=== PATIENT | male | born 1955 | race Caucasian/White ===

== ENCOUNTER 2020-01-19 09:49 | Inpatient (IN) ==
[2020-01-19] MEDS ORDERED: ADENOSINE IV SOLN 3 MG/ML 2 ML VIAL IV STA (10:07)
[2020-01-19] MEDS ORDERED: METOPROLOL TARTRATE 1 MG/ML VIAL IV ONE (10:12)
[2020-01-19] MEDS ORDERED: METOPROLOL TARTRATE 1 MG/ML VIAL IV PRN ×2 (10:13→15:46)
--- NOTE | 2020-01-19 10:28 | XRay Report ---
XR chest 1V portable CLINICAL HISTORY: sob, tachycardia COMPARISON STUDY: Chest radiograph January 08, 2011. FINDINGS: Lung volumes are normal. Lungs are clear. There is no pneumothorax or pleural effusion. The re is mild cardiomegaly. Mediastinal contours are normal. There is no evidence for pulmonary edema. IMPRESSION: No acute cardiopulmonary findings. Mild cardiomegaly. ACT 112: Negative or not required by law. Electronically signed by: Thom Stevens M.D. 01/19/2020 10:27 AM
[2020-01-19 10:38] LABS: Albumin Level 3.4 gm/dl (3.4-5.0); BUN Creatinine Ratio 14.9 (10-20); Calcium 9.2 mg/dl (8.5-10.1); Creatinine Clr Calc Pharmacy 70.6 ml/min; Est GFR (African American) 65.3; Est GFR (Non-African American) 56.3; Magnesium 2.3 mg/dl (1.8-2.4); Potassium 3.8 mmol/L (3.5-5.1)
[2020-01-19 10:40] LABS: ALC (manual) 2.35 K/uL (1.2-3.4); ANC (manual) 5.65 K/uL (1.4-6.5); Basophils # (manual) 0.08 K/uL (0-0.2); Basophils % (manual) 0.9 %; Hemoglobin 15.8 g/dL (14.0-18.0); Lymphocytes # (manual) 0.78 K/uL (1.2-3.4); Lymphocytes % (manual) 9.3 %; Mean Corpuscular Hemoglobin 30.6 pg (25-34); Mean Corpuscular Hgb Conc 34.3 g/dL (32-36); Mean Platelet Volume 12.2 fL (7.4-10.4); Monocytes # (manual) 0.37 K/uL (0.11-0.59); Monocytes % (manual) 4.4 %; Neutrophils # (manual) 5.65 K/uL (1.4-6.5); Neutrophils % (manual) 66.9 %; Platelet Count 121 K/uL (130-400); RDW Coefficient of Variation 13.5 % (11.5-14.5); RDW Standard Deviation 44.6 fL (36.4-46.3); Reactive Lymphocytes # (manual) 1.56 K/uL; Reactive Lymphocytes % (manual) 18.5 %; Red Blood Count 5.17 M/uL (4.7-6.1); White Blood Count 8.44 K/uL (4.8-10.8)
[2020-01-19] MEDS ORDERED: SODIUM CHLORIDE 0.9% 1000ML 500 ML IV ONE ×2 (10:41)
[2020-01-19 10:48] LABS: Albumin Globulin Ratio 0.7 (0.9-2); Bilirubin,Total 1.2 mg/dl (0.2-1); Globulin 4.7 gm/dl (2.5-4.0); Phosphorus 2.7 mg/dl (2.5-4.9); Thyroid Stimulating Hormone 1.47 uIu/ml (0.300-4.500); Total Protein 8.1 gm/dl (6.4-8.2)
[2020-01-19] MEDS ORDERED: dilTIAZem HCl 5 MG/ML 5 ML VIAL IV STA ×2 (10:50→19:39)
[2020-01-19 11:44] LABS: INR 1.1 (0.9-1.1); Partial Thromboplastin Ratio 1.2; Partial Thromboplastin Time 33.5 Seconds (21.0-31.0); Prothrombin Time 11.4 Seconds (9.0-12.0)
[2020-01-19] MEDS ORDERED: POLYETHYLENE (MIRALAX) 17 GM PACK PO PRN (12:10)
[2020-01-19] MEDS ORDERED: ACETAMINOPHEN 325 MG TAB PO PRN (12:10)
[2020-01-19] MEDS ORDERED: MAGNESIUM HYDROXIDE SUSP 30 ML UDC PO PRN (12:10)
--- NOTE | 2020-01-19 12:38 | History & Physical Report ---
Date of Service January 19, 2020 Assessment & Plan (1) Atrial flutter with rapid ventricular response: Patient is a 64 yo male with new onset Afib/Aflutter with RVR with rate up to 170s upon presentation. Admit to PCU Given Metoprolol x 2 and IV Cardizem in the ED. Rate improved. Continue IV Lopressor 12.5 MG QID & PRN IV Lopressor Start IV Heparin- uncertain duration of Aflutter Consult Cardiology Check Echocardiogram Continue to monitor on telemetry. Serial Troponin x 2 more. Initial trop negative. Repeat CBC & BMP in AM (2) Hypotension: (3) Fever: (4) D-dimer, elevated: (5) MCCOY (dyspnea on exertion): Hypotensive down to 75/62 upon presentation. Given 1 L fluid in the ED. Continue gentle hydration with hypotension. Feel that MCCOY is likely secondary to Aflutter/Afib, but with fever, question possible infectious etiology of symptoms as well Repeat COVID testing was negative Blood cultures, Lyme & Anaplasma ordered Hold abx at this time pending above testing DDimer elevated- CTA ordered and completed. Negative for PE (6) Nausea and vomiting: (7) DVT prophylaxis: IV Heparin as above History of Present Illness Primary Care Provider: Nagi Sanchez DO Patient is a 64 yo male with no personal cardiac history who presented to the ED with concern of 2-3 weeks of not feeling well. He has had fevers, sweats, fatigue, SOB, & N/V. He presented to outpatient weekend clinic at [facility] and was noted to be in Aflutter on EKG in the office. He was given ASA 325 mg in the office and referred to the ED for further evaluation and workup. The patient was COVID tested on 01/05/20 which was negative at that time. Since presentation to the ED, CXR was negative. WBC count within norm. Troponin undetectable. TSH & CMP unrevealing. Repeat COVID testing negative here. DDimer elevated. Procalcitonin slightly elevated. CTA Chest negative for PE. Allergies Allergy/AdvReac Type Severity Reaction Status Date / Time No Known Allergies Unverified 01/06/11 19:22 Home Medications Home Medications Medication Instructions Recorded Confirmed Type omeprazole 20 mg PO DAILY 01/19/20 01/19/20 History sildenafil 50 mg PO DIRECTED PRN 01/19/20 01/19/20 History Past Med/Surg History Medical History Anal fissure Noise-induced hearing loss Prediabetes Reflux esophagitis Surgical History H/O cervical spine surgery H/O esophagogastroduodenoscopy H/O right knee surgery History of ankle surgery History of tonsillectomy Hx of colonoscopy Family History Mother Colorectal cancer Breast cancer Father , @69yo Hypertension Diabetes Heart disease, Onset Age: 60 CABG Brother , @ 51yo Heart disease CHF, CAD Grandfather (Paternal) , @ 60 yo from [place] Myocardial infarction Social History Smoking Status: Never smoker Second Hand Exposure: No; Do You Dip or Chew Tobacco: No; Tobacco Cessation Education Requested by Patient: No Hx Alcohol Use: Yes Hx Substance Use: No Preferred Language: Citizen Of [place] Communication Ability: Effective Race Steward Required: No Beliefs That Will Affect Care: None Current Living Situation: Spouse Other Information That Helps Us Care for You: No Feels Safe at Home: Yes Safety Concerns: Feels Safe At This Time Review of Systems Review of Systems: All systems reviewed & are unremarkable except as noted in HPI & below See Dr. Rossi's addendum for complete ROS Constitutional: + body aches, + fatigue and + weakness; no fever and no chills Respiratory: + dyspnea; no cough Cardiovascular: + dyspnea on exertion, + palpitations and + lightheadedness Physical Exam Physical Exam: See Dr. Rossi's addendum for complete Physical Exam Constitutional: WD/WN, vitals as above no acute distress Eyes: PERRL, conjunctivae normal, anicteric sclerae ENMT: external ear and nose normal, oropharynx normal Neck: trachea midline, no thyromegaly Respiratory: normal respiratory effort, lungs clear to auscultation Cardiovascular: RRR, no murmur, no edema Gastrointestinal (Abdomen): normal bowel sounds, soft, nontender, no hepatos plenomegaly Skin: no rashes, warm and dry Neurologic: PERRL, EOMI, accommodation nl, no face palsy, no dysarthria Psychiatric: A+Ox3, euthymic affect Results & Data Results & Data ([facility]) Vital Signs (Past 12 Hours) Vital Signs Temp Pulse Resp BP Pulse Ox 01/19/20 12:00 85 12 95/61 L 96 01/19/20 11:50 85 14 112/79 96 01/19/20 11:40 87 18 100/73 96 01/19/20 11:30 86 13 99/68 L 96 01/19/20 11:27 15 96 01/19/20 11:20 87 17 109/74 01/19/20 11:10 109 H 21 92/74 L 01/19/20 11:00 82 20 106/80 01/19/20 10:53 103 H 18 93/77 L 01/19/20 10:51 135 H 15 75/62 L 01/19/20 10:50 152 H 23 90/74 L 01/19/20 10:32 147 H 15 93/62 L 97 01/19/20 10:30 149 H 13 80/51 L 98 01/19/20 10:22 37.0 C 174 H 22 91/73 L 96 01/19/20 10:17 169 H 15 104/59 L 98 01/19/20 10:15 173 H 91/73 L Laboratory Results Laboratory Results - last 24 hr 01/19/20 01/19/20 01/19/20 10:07 10:07 10:07 WBC 8.44 RBC 5.17 Hgb 15.8 Hct 46.0 MCV 89.0 MCH 30.6 MCHC 34.3 RDW Std Deviation 44.6 RDW Coeff of Lizbeth 13.5 Plt Count 121 L MPV 12.2 H Neutrophils % (Manual) 66.9 Lymphocytes % (Manual) 9.3 Reactive Lymphs % (Man) 18.5 Monocytes % (Manual) 4.4 Basophils % (Manual) 0.9 Neutrophils # (Manual) 5.65 Total Absolute Neuts 5.65 Lymphocytes # (Manual) 0.78 L Reactive Lymphs # 1.56 Total Abs Lymphocytes 2.35 Monocytes # (Manual) 0.37 Basophils # (Manual) 0.08 PT INR APTT PTT Ratio D-Dimer Sodium 138 Potassium 3.8 Chloride 107 Carbon Dioxide 21 Anion Gap 10.0 BUN 20 H Creatinine 1.31 Est Cr Clr Drug Dosing 70.6 Est GFR ( Amer) 65.3 Est GFR (Non-Af Amer) 56.3 BUN/Creatinine Ratio 14.9 Glucose 128 H Lactate Calcium 9.2 Phosphorus 2.7 Magnesium 2.3 Ferritin Total Bilirubin 1.2 H AST 28 ALT 52 Alkaline Phosphatase 89 Troponin I < 0.015 NT-Pro-B Natriuret Pep Total Protein 8.1 Albumin 3.4 Globulin 4.7 H Albumin/Globulin Ratio 0.7 L Procalcitonin TSH 1.470 Anaplasma Smear Pending 01/19/20 01/19/20 01/19/20 10:07 10:07 10:07 WBC RBC Hgb Hct MCV MCH MCHC RDW Std Deviation RDW Coeff of Lizbeth Plt Count MPV Neutrophils % (Manual) Lymphocytes % (Manual) Reactive Lymphs % (Man) Monocytes % (Manual) Basophils % (Manual) Neutrophils # (Manual) Total Absolute Neuts Lymphocytes # (Manual) Reactive Lymphs # Total Abs Lymphocytes Monocytes # (Manual) Basophils # (Manual) PT 11.4 INR 1.1 APTT 33.5 H PTT Ratio 1.2 D-Dimer Pending Sodium Potassium Chloride Carbon Dioxide Anion Gap BUN Creatinine Est Cr Clr Drug Dosing Est GFR ( Amer) Est GFR (Non-Af Amer) BUN/Creatinine Ratio Glucose Lactate Calcium Phosphorus Magnesium Ferritin Pending Total Bilirubin AST ALT Alkaline Phosphatase Troponin I NT-Pro-B Natriuret Pep Pending Total Protein Albumin Globulin Albumin/Globulin Ratio Procalcitonin TSH Pending Anaplasma Smear 01/19/20 01/19/20 10:07 10:15 WBC RBC Hgb Hct MCV MCH MCHC RDW Std Deviation RDW Coeff of Lizbeth Plt Count MPV Neutrophils % (Manual) Lymphocytes % (Manual) Reactive Lymphs % (Man) Monocytes % (Manual) Basophils % (Manual) Neutrophils # (Manual) Total Absolute Neuts Lymphocytes # (Manual) Reactive Lymphs # Total Abs Lymphocytes Monocytes # (Manual) Basophils # (Manual) PT INR APTT PTT Ratio D-Dimer Sodium Potassium Chloride Carbon Dioxide Anion Gap BUN Creatinine Est Cr Clr Drug Dosing Est GFR ( Amer) Est GFR (Non-Af Amer) BUN/Creatinine Ratio Glucose Lactate 1.7 Calcium Phosphorus Magnesium Ferritin Total Bilirubin AST ALT Alkaline Phosphatase Troponin I NT-Pro-B Natriuret Pep Total Protein Albumin Globulin Albumin/Globulin Ratio Procalcitonin Pending TSH Anaplasma Smear Diagnostic Findings CXR: XR chest 1V portable CLINICAL HISTORY: sob, tachycardia COMPARISON STUDY: Chest radiograph January 08, 2011. FINDINGS: Lung volumes are normal. Lungs are clear. There is no pneumothorax or pleural effusion. There is mild cardiomegaly. Mediastinal contours are normal. There is no evidence for pulmonary edema. IMPRESSION: No acute cardiopulmonary findings. Mild cardiomegaly. Code Status & VTE Plan VTE Prophylaxis Plan VTE Prophylaxis will be ordered: Yes Supervising Physician Co-Signing Physician Notes Attending addendum: Patient seen and examined at bedside in room CTAB 64-year-old male with past medical history of hypertension GERD admitted with shortness of breath palpitation, was found to be a flutter with heart rate of 170 in the ER No prior history of cardiac arrhythmia or coronary artery disease Patient reports of feeling weak fatigue generalized body ache weakness on and off for the past 3 weeks had low-grade fever headache Had a COVID-19 test done 2 weeks prior for the similar symptoms which was negative Patient reports his symptoms disappeared 3 days back and then started to have shortness of breath dyspnea on exertion again Patient lives in the [employer] works in the yard does not recall any tick bites no rash noted Does not have any fever or chills at this point no cough Labs and images reviewed: Vital signs as per [facility] Physical exam: General: a very pleasant male no sign of distress alert awake winded x3 conversing appropriately HEENT: Clear nonicteric pupils bilateral equal reactive to light, No carotid bruit Lungs: Clear to auscultate no wheeze or rales Cardio: Regular S1-S2 no lower extremity murmur, no carotid bruit Abdomen: Soft nontender Extremity: No rash or deformity noted no weakness or paresthesia Neuro: No focal neurological deficit A. fib/a flutter: New diagnosis, patient has been having shortness of breath or dyspnea on exertion, palpitation on and off for the past few weeks No prior history of coronary artery disease Has very strong family history of premature CAD: Dad had first [place] at age 40, Elder brother from acute [place] at age 50 pt started on PO Lopressor , HR rate controlled IV heparin wt based protocol cardiology consult resting ECHO Given strong family history of premature coronary artery disease patient will need ischemic work-up Fever body ache generalized weakness: Has been on and off for past several weeks COVID-19 negative For Lyme titer and anaplasmosis smear Patient still very symptomatic with body ache will start empirically with p.o. doxycycline Status: Full code DVT prophylaxis: IV heparin weight-based protocol Disposition: Expected to be discharged home when medically stable Patient will need to establish follow-ups cardiology on discharge Alisa Rossi MD
[2020-01-19 12:40] LABS: D Dimer 1300 ug/L FEU (0-500)
[2020-01-19 12:49] LABS: Ferritin 800.1 ng/ml (8-388); Thyroid Stimulating Hormone 1.4 uIu/ml (0.300-4.500)
[2020-01-19] MEDS ORDERED: OPTIRAY 320 125ml IV ONE (13:30)
--- NOTE | 2020-01-19 13:42 | CT Scan Report ---
CT ANGIOGRAPHY OF THE CHEST, PULMONARY EMBOLUS PROTOCOL CLINICAL HISTORY: PE, elevated DDimer, MCCOY COMPARISON STUDY: Chest radiograph January 08, 2011 and January 19, 2020. TECHNIQUE: Following IV administration of 120 mL of Optiray-320, helical axial images of the chest we re obtained utilizing the pulmonary embolus protocol. Maximal intensity projections and sagittal and coronal reformats were viewed on an independent 3D workstation. IV contrast was administered withou t complication. Automated exposure control was utilized for the study. A dose lowering technique wa s utilized adhering to the principles of ALARA. CT DOSE: 588.50 mGycm FINDINGS: No pulmonary emboli are identified. There is no thoracic aortic dissection. No enlarged ax illary, mediastinal or hilar lymph nodes are present. Mild cardiomegaly is noted. A small hiatal danna ia is present. Central airways are patent. There is no consolidation to suggest pneumonia. Linear and groundglass opacities represent atelectasis. No pneumothorax or pleural effusion is noted. There is no mediastinum. Visual portions of the upper abdomen partially visualize a water attenuation right re nal lesion which measures at least 4.6 cm. This probably reflects a cyst. IMPRESSION: 1. No pulmonary emboli identified. 2. No acute findings within the chest. 3. Mild cardiomegaly. 4. Small hiatal hernia. ACT 112: Negative or not required by law. Electronically signed by: Thom Stevens M.D. 01/19/2020 1:41 PM
[2020-01-19] MEDS ORDERED: Heparin BOLUS **ED Use Only IV STA (13:43)
[2020-01-19] MEDS: HEPARIN SODIUM/DEXTROSE 25,000 UNITS/500 ML BAG IV SCH (14:25)
--- NOTE | 2020-01-19 15:25 | Emergency Department Note ---
History of Present Illness General Chief complaint: Cardiac Assessment Stated complaint: SOB/Nausea/New Afib Time Seen by Provider: 01/19/20 09:51 Source: patient and family Mode of arrival: ambulatory Limitations: no limitations History of Present Illness Provider complaint: Shortness of breath, nausea, illness/low-grade fevers Maximum Pain Intensity: 3 This patient is a 64-year-old male who presents to the emergency department with complaints of shortness of breath, nausea, occasional vomiting and low-grade fevers. The patient states this has been ongoing for the last [address] ates during week 1 he felt that this was a "flu." Last week he was evaluated by his primary care physician and had a COVID swab done, which was negative. Patient states he has had some dyspnea with exertion but denies any shortness of breath at rest. He denies any palpitations or chest pain. Patient denies any blood in his stools. Home Medications Home Medications Medication Instructions Recorded Confirmed Type omeprazole 20 mg PO DAILY 01/19/20 01/19/20 History sildenafil 50 mg PO DIRECTED PRN 01/19/20 01/19/20 History Allergies Allergy/AdvReac Type Severity Reaction Status Date / Time No Known Allergies Unverified 01/06/11 19:22 Past Med/Surg History Medical History Anal fissure Noise-induced hearing loss Prediabetes Reflux esophagitis Surgical History H/O cervical spine surgery H/O esophagogastroduodenoscopy H/O right knee surgery History of ankle surgery History of tonsillectomy Hx of colonoscopy Family History Mother Colorectal cancer Breast cancer Father , @69yo Hypertension Diabetes Heart disease, Onset Age: 60 CABG Brother , @ 51yo Heart disease CHF, CAD Grandfather (Paternal) , @ 60 yo from [place] Myocardial infarction Social History Smoking Status: Never smoker Second Hand Exposure: No; Do You Dip or Chew Tobacco: No; Tobacco Cessation Education Requested by Patient: No Hx Alcohol Use: Yes Hx Substance Use: No Preferred Language: Bolivian Communication Ability: Effective Surgical Technologist Required: No Beliefs That Will Affect Care: None Current Living Situation: Spouse Other Information That Helps Us Care for You: No Feels Safe at Home: Yes Safety Concerns: Feels Safe At This Time Review of Systems See HPI for pertinent positives & negatives. and A total of 10 systems reviewed and were otherwise negative Physical Exam Vital Signs Vital Signs - 24 hr 01/19/20 10:15 01/19/20 10:17 01/19/20 10:22 Temperature 37.0 C Temperature Source Oral Pulse Rate 173 H 169 H 174 H Pulse Rate from SpO2 Sensor Pulse Rhythm Irregular Respiratory Rate 15 22 Respiratory Effort / Characteristics Spontaneous Respiratory Pattern Regular Blood Pressure 91/73 L 104/59 L 91/73 L Blood Pressure Mean 64 79 Pulse Oximetry 98 96 Oxygen Delivery Method Room Air Sepsis Recent Fever Within 48 Hours Yes Sepsis New/Unexplained Change in Mental Status No Sepsis Action Taken by Nursing Physician Notified 01/19/20 10:30 01/19/20 10:32 01/19/20 10:50 Temperature Temperature Source Pulse Rate 149 H 147 H 152 H Pulse Rate from SpO2 Sensor Pulse Rhythm Respiratory Rate 13 15 23 Respiratory Effort / Characteristics Respiratory Pattern Blood Pressure 80/51 L 93/62 L 90/74 L Blood Pressure Mean 54 66 76 Pulse Oximetry 98 97 Oxygen Delivery Method Sepsis Recent Fever Within 48 Hours Sepsis New/Unexplained Change in Mental Status Sepsis Action Taken by Nursing 01/19/20 10:51 01/19/20 10:53 01/19/20 11:00 Temperature Temperature Source Pulse Rate 135 H 103 H 82 Pulse Rate from SpO2 Sensor Pulse Rhythm Respiratory Rate 15 18 20 Respiratory Effort / Characteristics Respiratory Pattern Blood Pressure 75/62 L 93/77 L 106/80 Blood Pressure Mean 64 83 85 Pulse Oximetry Oxygen Delivery Method Sepsis Recent Fever Within 48 Hours Sepsis New/Unexplained Change in Mental Status Sepsis Action Taken by Nursing 01/19/20 11:10 01/19/20 11:20 01/19/20 11:27 Temperature Temperature Source Pulse Rate 109 H 87 Pulse Rate from SpO2 Sensor Pulse Rhythm Respiratory Rate 21 17 15 Respiratory Effort / Characteristics Respiratory Pattern Blood Pressure 92/74 L 109/74 Blood Pressure Mean 77 77 Pulse Oximetry 96 Oxygen Delivery Method Room Air Sepsis Recent Fever Within 48 Hours Sepsis New/Unexplained Change in Mental Status Sepsis Action Taken by Nursing 01/19/20 11:30 01/19/20 11:40 01/19/20 11:50 Temperature Temperature Source Pulse Rate 86 87 85 Pulse Rate from SpO2 Sensor 87 86 86 Pulse Rhythm Respiratory Rate 13 18 14 Respiratory Effort / Characteristics Respiratory Pattern Blood Pressure 99/68 L 100/73 112/79 Blood Pressure Mean 79 78 83 Pulse Oximetry 96 96 96 Oxygen Delivery Method Room Air Room Air Room Air Sepsis Recent Fever Within 48 Hours Sepsis New/Unexplained Change in Mental Status Sepsis Action Taken by Nursing 01/19/20 12:00 01/19/20 12:10 01/19/20 12:20 Temperature Temperature Source Pulse Rate 85 88 87 Pulse Rate from SpO2 Sensor 85 88 87 Pulse Rhythm Respiratory Rate 12 12 17 Respiratory Effort / Characteristics Respiratory Pattern Blood Pressure 95/61 L 92/66 L 108/66 Blood Pressure Mean 68 77 71 Pulse Oximetry 96 97 96 Oxygen Delivery Method Room Air Sepsis Recent Fever Within 48 Hours Sepsis New/Unexplained Change in Mental Status Sepsis Action Taken by Nursing 01/19/20 12:30 01/19/20 12:40 01/19/20 12:50 Temperature Temperature Source Pulse Rate 84 85 86 Pulse Rate from SpO2 Sensor 85 85 86 Pulse Rhythm Respiratory Rate 13 15 22 Respiratory Effort / Characteristics Respiratory Pattern Blood Pressure 106/85 109/80 116/79 Blood Pressure Mean 98 84 84 Pulse Oximetry 96 96 95 Oxygen Delivery Method Sepsis Recent Fever Within 48 Hours Sepsis New/Unexplained Change in Mental Status Sepsis Action Taken by Nursing 01/19/20 13:00 01/19/20 13:10 01/19/20 13:30 Temperature Temperature Source Pulse Rate 87 86 84 Pulse Rate from SpO2 Sensor 87 67 85 Pulse Rhythm Respiratory Rate 22 18 17 Respiratory Effort / Characteristics Respiratory Pattern Blood Pressure 122/89 Blood Pressure Mean 99 Pulse Oximetry 95 94 97 Oxygen Delivery Method Room Air Sepsis Recent Fever Within 48 Hours Sepsis New/Unexplained Change in Mental Status Sepsis Action Taken by Nursing 01/19/20 13:40 01/19/20 13:50 01/19/20 14:00 Temperature Temperature Source Pulse Rate 83 86 83 Pulse Rate from SpO2 Sensor 82 84 82 Pulse Rhythm Respiratory Rate 16 26 H 13 Respiratory Effort / Characteristics Respiratory Pattern Blood Pressure Blood Pressure Mean Pulse Oximetry 98 96 98 Oxygen Delivery Method Sepsis Recent Fever Within 48 Hours Sepsis New/Unexplained Change in Mental Status Sepsis Action Taken by Nursing 01/19/20 14:10 01/19/20 14:20 01/19/20 14:23 Temperature Temperature Source Pulse Rate 84 85 82 Pulse Rate from SpO2 Sensor 85 84 82 Pulse Rhythm Respiratory Rate 24 12 14 Respiratory Effort / Characteristics Respiratory Pattern Blood Pressure 105/72 Blood Pressure Mean 90 Pulse Oximetry 96 98 96 Oxygen Delivery Method Room Air Sepsis Recent Fever Within 48 Hours Sepsis New/Unexplained Change in Mental Status Sepsis Action Taken by Nursing 01/19/20 14:30 01/19/20 14:45 01/19/20 15:00 Temperature Temperature Source Pulse Rate 83 81 82 Pulse Rate from SpO2 Sensor 83 81 82 Pulse Rhythm Respiratory Rate 12 13 12 Respiratory Effort / Characteristics Respiratory Pattern Blood Pressure 113/82 115/83 124/81 Blood Pressure Mean 88 89 90 Pulse Oximetry 96 98 97 Oxygen Delivery Method Room Air Room Air Room Air Sepsis Recent Fever Within 48 Hours Sepsis New/Unexplained Change in Mental Status Sepsis Action Taken by Nursing 01/19/20 15:15 Temperature Temperature Source Pulse Rate 81 Pulse Rate from SpO2 Sensor 81 Pulse Rhythm Respiratory Rate 21 Respiratory Effort / Characteristics Respiratory Pattern Blood Pressure 132/84 Blood Pressure Mean 112 Pulse Oximetry 96 Oxygen Delivery Method Sepsis Recent Fever Within 48 Hours Sepsis New/Unexplained Change in Mental Status Sepsis Action Taken by Nursing Vital signs reviewed. General: Somewhat ill-appearing 64-year-old male, in no significant distress. HEENT: No scleral icterus, PERRLA, neck supple. Atraumatic. Cardiovascular: Tachycardic, regular Pulmonary: Clear to auscultation bilaterally, normal work of breathing. Abdomen: Soft, obese, nontender, nondistended, positive bowel sounds. Musculoskeletal: Atraumatic, no peripheral edema. Neurologic: Patient awake alert and oriented x 3 Skin: Mildly diaphoretic, warm, no rash Course Administered Medications Heparin Sodium/Dextrose (Heparin Sodium/Dextrose) 25,000 units in 500 mls @ 32 mls/hr IV .[id number] [facility]; Protocol Stop: 02/18/20 12:29 Last Admin: 01/19/20 14:25 Dose: 1,600 units/hr, 32 mls/hr Documented by: [id number] Cosigned by: [id number] Metoprolol Tartrate (Metoprolol Tartrate 1 Mg/Ml Vial) 5 mg IV Q5M PRN PRN Reason: Tachycardia Stop: 02/18/20 10:12 Last Admin: 01/19/20 10:15 Dose: 5 mg Documented by: [id number] Discontinued Medications Adenosine (Adenosine Iv Soln 3 Mg/Ml 2 Ml Vial) 6 mg IV NOW STA Stop: 01/19/20 10:08 Last Admin: 01/19/20 10:30 Dose: Not Given Documented by: [id number] Heparin Sodium (Porcine) (Heparin Bolus Ed Use Only) 7,000 units IV NOW STA Stop: 01/19/20 13:44 Last Admin: 01/19/20 14:25 Dose: 7,000 units Documented by: [id number] Cosigned by: [id number] Sodium Chloride (Nss 1000ml) 500 mls @ 999 mls/hr IV .Q31M ONE Stop: 01/19/20 11:11 Last Infusion: 01/19/20 11:11 Dose: 0 mls/hr Documented by: [id number] Admin: 01/19/20 10:40 Dose: 999 mls/hr Documented by: [id number] Sodium Chloride (Nss 1000ml) 500 mls @ 999 mls/hr IV .Q31M ONE Stop: 01/19/20 11:11 Last Infusion: 01/19/20 11:35 Dose: 0 mls/hr Documented by: [id number] Admin: 01/19/20 11:11 Dose: 999 mls/hr Documented by: [id number] Ioversol (Optiray 320 125ml) 120 ml IV ONCE ONE Stop: 01/19/20 13:31 Last Admin: 01/19/20 13:31 Dose: 120 ml Documented by: [id number] Critical Care Time Critical Care Time: Yes I have personally spent greater than 40 minutes of critical care time in the direct management of this patient. This includes bedside care, interpretation of diagnostic studies, and testing, discussion with consultants, patient, and family members, and other required patient management activities. This 40 minutes is in excess of all separately billable procedures. Medical Decision Making Differential Diagnosis Differential diagnosis: Etiologies such as infections, reactive airway disease, COPD, pneumonia, pleural effusion, pulmonary edema, ARDS, pneumothorax, CHF, cardiac ischemia, cardiac tamponade, dysrhythmia, anemia, pulmonary embolism, musculoskeletal, gastrointestinal process, as well as others were entertained. Medical Records Attestation: I reviewed the patient's medical records. Home Medications Current Medication List: was personally reviewed by me Laboratory Data Attestation: I reviewed the patient's lab results. Result diagrams: 01/19/20 10:07 01/19/20 10:07 Lab Results 01/19/20 01/19/20 01/19/20 Range/Units 10:07 10:07 10:07 WBC 8.44 (4.8-10.8) K/uL RBC 5.17 (4.7-6.1) M/uL Hgb 15.8 (14.0-18.0) g/dL Hct 46.0 (42-52) % MCV 89.0 (80-100) fL MCH 30.6 (25-34) pg MCHC 34.3 (32-36) g/dL RDW Std Deviation 44.6 (36.4-46.3) fL RDW Coeff of Lizbeth 13.5 (11.5-14.5) % Plt Count 121 L (130-400) K/uL MPV 12.2 H (7.4-10.4) fL Neutrophils % (Manual) 66.9 % Lymphocytes % (Manual) 9.3 % Reactive Lymphs % (Man) 18.5 % Monocytes % (Manual) 4.4 % Basophils % (Manual) 0.9 % Neutrophils # (Manual) 5.65 (1.4-6.5) K/uL Total Absolute Neuts 5.65 (1.4-6.5) K/uL Lymphocytes # (Manual) 0.78 L (1.2-3.4) K/uL Reactive Lymphs # 1.56 K/uL Total Abs Lymphocytes 2.35 (1.2-3.4) K/uL Monocytes # (Manual) 0.37 (0.11-0.59) K/uL Basophils # (Manual) 0.08 (0-0.2) K/uL PT (9.0-12.0) Seconds INR (0.9-1.1) APTT (21.0-31.0) Seconds PTT Ratio D-Dimer (0-500) ug/L FEU Sodium 138 (136-145) mmol/L Potassium 3.8 (3.5-5.1) mmol/L Chloride 107 (98-107) mmol/L Carbon Dioxide 21 (21-32) mmol/L Anion Gap 10.0 (3-11) BUN 20 H (7-18) mg/dl Creatinine 1.31 (0.6-1.4) mg/dl Est Cr Clr Drug Dosing 70.6 ml/min Est GFR ( Amer) 65.3 Est GFR (Non-Af Amer) 56.3 BUN/Creatinine Ratio 14.9 (10-20) Glucose 128 H (70-99) mg/dl Lactate (0.4-2.0) mmol/L Calcium 9.2 (8.5-10.1) mg/dl Phosphorus 2.7 (2.5-4.9) mg/dl Magnesium 2.3 (1.8-2.4) mg/dl Ferritin (8-388) ng/ml Total Bilirubin 1.2 H (0.2-1) mg/dl AST 28 (15-37) U/L ALT 52 (12-78) U/L Alkaline Phosphatase 89 (45-117) U/L Troponin I < 0.015 (0-0.045) ng/ml NT-Pro-B Natriuret Pep (0-900) pg/ml Total Protein 8.1 (6.4-8.2) gm/dl Albumin 3.4 (3.4-5.0) gm/dl Globulin 4.7 H (2.5-4.0) gm/dl Albumin/Globulin Ratio 0.7 L (0.9-2) Procalcitonin (0-0.5) ng/ml TSH 1.470 (0.300-4.500) uIu/ml Anaplasma Smear See Comment COVID-19 Eval Order COVID-19 PCR (Negative) 01/19/20 01/19/20 01/19/20 Range/Units 10:07 10:07 10:07 WBC (4.8-10.8) K/uL RBC (4.7-6.1) M/uL Hgb (14.0-18.0) g/dL Hct (42-52) % MCV (80-100) fL MCH (25-34) pg MCHC (32-36) g/dL RDW Std Deviation (36.4-46.3) fL RDW Coeff of Lizbeth (11.5-14.5) % Plt Count (130-400) K/uL MPV (7.4-10.4) fL Neutrophils % (Manual) % Lymphocytes % (Manual) % Reactive Lymphs % (Man) % Monocytes % (Manual) % Basophils % (Manual) % Neutrophils # (Manual) (1.4-6.5) K/uL Total Absolute Neuts (1.4-6.5) K/uL Lymphocytes # (Manual) (1.2-3.4) K/uL Reactive Lymphs # K/uL Total Abs Lymphocytes (1.2-3.4) K/uL Monocytes # (Manual) (0.11-0.59) K/uL Basophils # (Manual) (0-0.2) K/uL PT 11.4 (9.0-12.0) Seconds INR 1.1 (0.9-1.1) APTT 33.5 H (21.0-31.0) Seconds PTT Ratio 1.2 D-Dimer 1300 H* (0-500) ug/L FEU Sodium (136-145) mmol/L Potassium (3.5-5.1) mmol/L Chloride (98-107) mmol/L Carbon Dioxide (21-32) mmol/L Anion Gap (3-11) BUN (7-18) mg/dl Creatinine (0.6-1.4) mg/dl Est Cr Clr Drug Dosing ml/min Est GFR ( Amer) Est GFR (Non-Af Amer) BUN/Creatinine Ratio (10-20) Glucose (70-99) mg/dl Lactate (0.4-2.0) mmol/L Calcium (8.5-10.1) mg/dl Phosphorus (2.5-4.9) mg/dl Magnesium (1.8-2.4) mg/dl Ferritin 800.1 H (8-388) ng/ml Total Bilirubin (0.2-1) mg/dl AST (15-37) U/L ALT (12-78) U/L Alkaline Phosphatase (45-117) U/L Troponin I (0-0.045) ng/ml NT-Pro-B Natriuret Pep 189 (0-900) pg/ml Total Protein (6.4-8.2) gm/dl Albumin (3.4-5.0) gm/dl Globulin (2.5-4.0) gm/dl Albumin/Globulin Ratio (0.9-2) Procalcitonin (0-0.5) ng/ml TSH 1.400 (0.300-4.500) uIu/ml Anaplasma Smear COVID-19 Eval Order COVID-19 PCR (Negative) 01/19/20 01/19/20 01/19/20 Range/Units 10:07 10:15 13:12 WBC (4.8-10.8) K/uL RBC (4.7-6.1) M/uL Hgb (14.0-18.0) g/dL Hct (42-52) % MCV (80-100) fL MCH (25-34) pg MCHC (32-36) g/dL RDW Std Deviation (36.4-46.3) fL RDW Coeff of Lizbeth (11.5-14.5) % Plt Count (130-400) K/uL MPV (7.4-10.4) fL Neutrophils % (Manual) % Lymphocytes % (Manual) % Reactive Lymphs % (Man) % Monocytes % (Manual) % Basophils % (Manual) % Neutrophils # (Manual) (1.4-6.5) K/uL Total Absolute Neuts (1.4-6.5) K/uL Lymphocytes # (Manual) (1.2-3.4) K/uL Reactive Lymphs # K/uL Total Abs Lymphocytes (1.2-3.4) K/uL Monocytes # (Manual) (0.11-0.59) K/uL Basophils # (Manual) (0-0.2) K/uL PT (9.0-12.0) Seconds INR (0.9-1.1) APTT (21.0-31.0) Seconds PTT Ratio D-Dimer (0-500) ug/L FEU Sodium (136-145) mmol/L Potassium (3.5-5.1) mmol/L Chloride (98-107) mmol/L Carbon Dioxide (21-32) mmol/L Anion Gap (3-11) BUN (7-18) mg/dl Creatinine (0.6-1.4) mg/dl Est Cr Clr Drug Dosing ml/min Est GFR ( Amer) Est GFR (Non-Af Amer) BUN/Creatinine Ratio (10-20) Glucose (70-99) mg/dl Lactate 1.7 (0.4-2.0) mmol/L Calcium (8.5-10.1) mg/dl Phosphorus (2.5-4.9) mg/dl Magnesium (1.8-2.4) mg/dl Ferritin (8-388) ng/ml Total Bilirubin (0.2-1) mg/dl AST (15-37) U/L ALT (12-78) U/L Alkaline Phosphatase (45-117) U/L Troponin I (0-0.045) ng/ml NT-Pro-B Natriuret Pep (0-900) pg/ml Total Protein (6.4-8.2) gm/dl Albumin (3.4-5.0) gm/dl Globulin (2.5-4.0) gm/dl Albumin/Globulin Ratio (0.9-2) Procalcitonin 1.07 H (0-0.5) ng/ml TSH (0.300-4.500) uIu/ml Anaplasma Smear COVID-19 Eval Order Covid19 Done at [facility] COVID-19 PCR (Negative) 01/19/20 Range/Units 13:12 WBC (4.8-10.8) K/uL RBC (4.7-6.1) M/uL Hgb (14.0-18.0) g/dL Hct (42-52) % MCV (80-100) fL MCH (25-34) pg MCHC (32-36) g/dL RDW Std Deviation (36.4-46.3) fL RDW Coeff of Lizbeth (11.5-14.5) % Plt Count (130-400) K/uL MPV (7.4-10.4) fL Neutrophils % (Manual) % Lymphocytes % (Manual) % Reactive Lymphs % (Man) % Monocytes % (Manual) % Basophils % (Manual) % Neutrophils # (Manual) (1.4-6.5) K/uL Total Absolute Neuts (1.4-6.5) K/uL Lymphocytes # (Manual) (1.2-3.4) K/uL Reactive Lymphs # K/uL Total Abs Lymphocytes (1.2-3.4) K/uL Monocytes # (Manual) (0.11-0.59) K/uL Basophils # (Manual) (0-0.2) K/uL PT (9.0-12.0) Seconds INR (0.9-1.1) APTT (21.0-31.0) Seconds PTT Ratio D-Dimer (0-500) ug/L FEU Sodium (136-145) mmol/L Potassium (3.5-5.1) mmol/L Chloride (98-107) mmol/L Carbon Dioxide (21-32) mmol/L Anion Gap (3-11) BUN (7-18) mg/dl Creatinine (0.6-1.4) mg/dl Est Cr Clr Drug Dosing ml/min Est GFR ( Amer) Est GFR (Non-Af Amer) BUN/Creatinine Ratio (10-20) Glucose (70-99) mg/dl Lactate (0.4-2.0) mmol/L Calcium (8.5-10.1) mg/dl Phosphorus (2.5-4.9) mg/dl Magnesium (1.8-2.4) mg/dl Ferritin (8-388) ng/ml Total Bilirubin (0.2-1) mg/dl AST (15-37) U/L ALT (12-78) U/L Alkaline Phosphatase (45-117) U/L Troponin I (0-0.045) ng/ml NT-Pro-B Natriuret Pep (0-900) pg/ml Total Protein (6.4-8.2) gm/dl Albumin (3.4-5.0) gm/dl Globulin (2.5-4.0) gm/dl Albumin/Globulin Ratio (0.9-2) Procalcitonin (0-0.5) ng/ml TSH (0.300-4.500) uIu/ml Anaplasma Smear COVID-19 Eval Order COVID-19 PCR NEGATIVE (Negative) Imaging Data Radiologist's Impression: XR chest 1V portable CLINICAL HISTORY: sob, tachycardia COMPARISON STUDY: Chest radiograph January 08, 2011. FINDINGS: Lung volumes are normal. Lungs are clear. There is no pneumothorax or pleural effusion. There is mild cardiomegaly. Mediastinal contours are normal. There is no evidence for pulmonary edema. IMPRESSION: No acute cardiopulmonary findings. Mild cardiomegaly. ACT 112: Negative or not required by law. Electronically signed by: Thom Stevens M.D. 01/19/2020 10:27 AM Dictated: 01/19/20 1026 Transcribed: 01/19/20 1026 ECG Data Attestation: I personally reviewed and interpreted this ECG as follows: Indication: + nausea, + vomiting and + weakness Rate (beats per minute): 170 Rhythm: + sinus tachycardia ECG Intervals/blocks: + Right Bundle branch block ECG ST segments: + Nonspecific ST abnormalities and + repolarization abnormalities ECG Findings: no PACs and no PVCs Blood Pressure Blood Pressure Findings: Normal blood pressure Blood Pressure Disposition: did not require urgent referral MDM Narrative This patient was evaluated and appeared to be in no distress. IV access was obtained and laboratory work was drawn. An order for cardiac monitoring was placed and the patient is found to be in a rapid rhythm. Patient states he had no palpitations or dizziness. IV fluids were initiated as he is mildly hypotensive. Patient was initially ordered 6 mg of IV adenosine which was held. Patient had some irregularity indicating probably an atrial fib or flutter. 5 mg of IV metoprolol was administered. Patient required an additional IV fluid bolus due to hypotension and tachycardia that persisted. Additional 5 mg of IV metoprolol was given. On my reevaluation, the patient had periods of a normal sinus rhythm in the 80s. He did have a brief bradycardia to the 40s. Patient then became tachycardic once again with a rapid atrial fibrillation. 10 mg of IV Cardizem was ordered however the patient again broke on his own. Laboratory work is fairly reassuring. There is no leukocytosis. Patient has a mild thrombocytopenia at 121,000. Blood cultures are pending and lactate is 1.7. Patient's troponin is negative. At this time he will be evaluated by the [facility] service for further management. Patient and his are aware of the plan and agree. Impression & Plan Atrial flutter with rapid ventricular response, Fever, low grade Discharge Plan Visit Data Chief Complaint: Cardiac Assessment Stated Complaint: SOB/Nausea/New Afib ED Provider: Tiarra Feldman Discharge Problem: Atrial flutter with rapid ventricular response, Fever, low grade Forms Stand Alone Forms: My [employer] Prescriptions Prescriptions: No Action sildenafil 50 mg tablet 50 mg PO DIRECTED PRN (Reason: Erectile Dysfunction) RF: 0 omeprazole 20 mg capsule,delayed release(DR/EC) 20 mg PO DAILY RF: 0 Referrals Referrals: Nagi Sanchez DO [Primary Care Provider] -
[2020-01-19 15:31] LABS: Lyme Ab IgG w/WB Rflx Negative (Negative); Lyme Ab IgM w/WB Rflx Negative (Negative)
[2020-01-19] MEDS: METOPROLOL TARTRATE 25 MG TAB PO SCH ×2 (16:22→21:01)
--- NOTE | 2020-01-19 16:52 | Communication Note ---
Date of Service: January 19, 2020 Patient's initial Lyme IgG/IgM negative, Anaplasma peripheral blood smear negative as well P.o. doxycycline will not be ordered Alisa Rossi MD
[2020-01-19] MEDS ORDERED: SODIUM CHLORIDE 0.9% 1000ML 1,000 ML IV SCH (17:00)
[2020-01-19] MEDS ORDERED: STAT IV Infusion **Titration per Protocol STA (19:39)
[2020-01-19] MEDS: dilTIAZem HCL 125 MG in DEXTROSE 5% 100 ML IV SCH (20:07)
[2020-01-19 21:03] LABS: Partial Thromboplastin Ratio 2.9
[2020-01-19 21:12] LABS: Partial Thromboplastin Time 81.9 Seconds (21.0-31.0)
[2020-01-19] MEDS ORDERED: METOPROLOL TARTRATE 25 MG TAB PO STA (21:53)
[2020-01-19] MEDS ORDERED: LORazepam 0.5 MG TAB PO STA (22:00)
[2020-01-20 04:35] LABS: BUN Creatinine Ratio 15.6 (10-20); Calcium 8.1 mg/dl (8.5-10.1); Creatinine Clr Calc Pharmacy 92.5 ml/min; Est GFR (African American) 90.5; Est GFR (Non-African American) 78.1; Potassium 3.8 mmol/L (3.5-5.1)
[2020-01-20 04:36] LABS: Partial Thromboplastin Ratio 2.6
[2020-01-20 04:38] LABS: Hematocrit (blood only) 41.4 % (42-52); Hemoglobin 13.9 g/dL (14.0-18.0); Mean Corpuscular Hemoglobin 30.2 pg (25-34); Mean Corpuscular Hgb Conc 33.6 g/dL (32-36); Mean Platelet Volume 12.2 fL (7.4-10.4); Platelet Count 115 K/uL (130-400); RDW Coefficient of Variation 13.8 % (11.5-14.5); RDW Standard Deviation 46.1 fL (36.4-46.3); White Blood Count 7.05 K/uL (4.8-10.8)
[2020-01-20 04:39] LABS: Platelet Estimate Decreased (Normal)
[2020-01-20 04:50] LABS: Partial Thromboplastin Time 72.3 Seconds (21.0-31.0)
[2020-01-20] MEDS: METOPROLOL TARTRATE 25 MG TAB PO SCH ×3 (07:33→20:54)
[2020-01-20] MEDS: HEPARIN SODIUM/DEXTROSE 25,000 UNITS/500 ML BAG IV SCH (08:34)
[2020-01-20] MEDS: dilTIAZem HCL 125 MG in DEXTROSE 5% 100 ML IV SCH (08:34)
[2020-01-20] MEDS ORDERED: DIGOXIN 250 MCG in SYRINGE 9 ML IV STA (08:50)
--- NOTE | 2020-01-20 08:55 | Cardiology Consultation ---
Date of Consultation January 20, 2020 Assessment & Plan (1) Nausea and vomiting: (2) Fever, low grade: (3) Hypotension: (4) Atrial flutter with rapid ventricular response: At present I would continue his current regiment of metoprolol and a diltiazem infusion along with IV heparin. Although the work-up has been negative thus far, some studies are still pending such as blood cultures. I will review his echocardiogram today. We will wait for blood cultures to come back. The decision will have to be made whether or not to cardiovert him this admission which will require a JAZLYN to exclude thrombus or to wait several weeks of anticoagulation. At present his heart rates are not controlled and I will add digoxin to his medical regimen. History of Present Illness Attending Physician: Alisa Rossi MD History of Present Illness This is a 64-year-old male patient with no prior history of heart disease. He was in his usual state of health until the beginning of December when he started to have fever and chills nausea and vomiting. It seems to have occurred mainly at night. When it happened a second time the patient went for a COVID 19 test which was negative. Believe the specific date was January 04. The patient then had a third episode and decided to be seen at the weekend clinic at [facility]. He was found to be in newly discovered atrial flutter. He was asymptomatic in regard to the atrial arrhythmia. He had no shortness of breath or chest pain. No dizziness or lightheadedness. Following admission his thyroid studies have been unremarkable. His cardiac markers are negative. His Lyme's titers and anaplasmosis are negative. A repeat COVID 19 test was negative. He had an echocardiogram this morning which needs to be reviewed. At present he is comfortable but in atrial flutter with RVR. Allergies Allergy/AdvReac Type Severity Reaction Status Date / Time No Known Allergies Unverified 01/06/11 19:22 Home Medications Home Medications Medication Instructions Recorded Confirmed Type omeprazole 20 mg PO DAILY 01/19/20 01/19/20 History sildenafil 50 mg PO DIRECTED PRN 01/19/20 01/19/20 History Patient History Medical History Anal fissure Noise-induced hearing loss Prediabetes Reflux esophagitis Surgical History H/O cervical spine surgery H/O esophagogastroduodenoscopy H/O right knee surgery History of ankle surgery History of tonsillectomy Hx of colonoscopy Family History Mother Colorectal cancer Breast cancer Father , @69yo Hypertension Diabetes Heart disease, Onset Age: 60 CABG Brother , @ 51yo Heart disease CHF, CAD Grandfather (Paternal) , @ 60 yo from [place] Myocardial infarction Social History Smoking Status: Never smoker Second Hand Exposure: No; Do You Dip or Chew Tobacco: No; Tobacco Cessation Education Requested by Patient: No Hx Alcohol Use: Yes Hx Substance Use: No Preferred Language: Italian Communication Ability: Effective Drum Stenciler Required: No Beliefs That Will Affect Care: None Current Living Situation: Spouse Other Information That Helps Us Care for You: No Feels Safe at Home: Yes Safety Concerns: Feels Safe At This Time Review of Systems Review of Systems: All systems reviewed & are unremarkable except as noted in HPI & below Nothing additional to add Physical Exam Physical Exam: General: no acute distress and stated age Head: normocephalic, no masses, lesions, tenderness or abnormalities Eyes: conjunctiva are pink and non-injected, sclera clear Neck: supple, no adenopathy, no bruits, normal jugular venous pulse, no hepatojugular reflux Chest: normal shape and normal respiratory effort Lungs: clear to auscultation and percussion Cardiac Exam: - regular rate & rhythm, no murmurs gallops or rubs - normal S1, normal S2 Pulses: 2(+) throughout Abdomen: abdomen soft, non-tender, no abnormal masses and no hepatosplenomegaly Musculoskeletal: no gait disturbance, no joint inflammation, no deforming arthritis Extremities: no edema and no cyanosis Neuro: grossly normal exam Results & Data ([facility]) Vital Signs (Past 12 Hours) Vital Signs Temp Pulse Pulse Pulse Resp BP Pulse Ox 01/20/20 07:24 36.6 C 150 H 18 134/87 94 01/20/20 03:54 36.8 C 83 19 124/79 98 01/19/20 23:12 36.9 C 67 18 101/60 97 01/19/20 22:43 110 H Laboratory Results Laboratory Results - last 24 hr 01/19/20 01/19/20 01/19/20 10:07 10:07 10:07 WBC 8.44 RBC 5.17 Hgb 15.8 Hct 46.0 MCV 89.0 MCH 30.6 MCHC 34.3 RDW Std Deviation 44.6 RDW Coeff of Lizbeth 13.5 Plt Count 121 L MPV 12.2 H Neutrophils % (Manual) 66.9 Lymphocytes % (Manual) 9.3 Reactive Lymphs % (Man) 18.5 Monocytes % (Manual) 4.4 Basophils % (Manual) 0.9 Neutrophils # (Manual) 5.65 Total Absolute Neuts 5.65 Lymphocytes # (Manual) 0.78 L Reactive Lymphs # 1.56 Total Abs Lymphocytes 2.35 Monocytes # (Manual) 0.37 Basophils # (Manual) 0.08 Platelet Estimate PT INR APTT PTT Ratio D-Dimer Sodium 138 Potassium 3.8 Chloride 107 Carbon Dioxide 21 Anion Gap 10.0 BUN 20 H Creatinine 1.31 Est Cr Clr Drug Dosing 70.6 Est GFR ( Amer) 65.3 Est GFR (Non-Af Amer) 56.3 BUN/Creatinine Ratio 14.9 Glucose 128 H Lactate Calcium 9.2 Phosphorus 2.7 Magnesium 2.3 Ferritin Total Bilirubin 1.2 H AST 28 ALT 52 Alkaline Phosphatase 89 Troponin I < 0.015 NT-Pro-B Natriuret Pep Total Protein 8.1 Albumin 3.4 Globulin 4.7 H Albumin/Globulin Ratio 0.7 L Procalcitonin TSH 1.470 Anaplasma Smear See Comment A. phagocytophilum DNA Lyme Disease IgG Ab Lyme IgG (Western Blot) Lyme IgG 18 kDa Band Lyme IgG 23 kDa Band Lyme IgG 28 kDa Band Lyme IgG 30 kDa Band Lyme IgG 39 kDa Band Lyme IgG 41 kDa Band Lyme IgG 45 kDa Band Lyme IgG 58 kDa Band Lyme IgG 66 kDa Band Lyme IgG 93 kDa Band Lyme IgM Ab (WB) Lyme Disease IgM Ab Lyme IgM 23 kDa Band Lyme IgM 39 kDa Band Lyme IgM 41 kDa Band COVID-19 Eval Order COVID-19 PCR Hepatitis C Ab Screen 01/19/20 01/19/20 01/19/20 10:07 10:07 10:07 WBC RBC Hgb Hct MCV MCH MCHC RDW Std Deviation RDW Coeff of Lizbeth Plt Count MPV Neutrophils % (Manual) Lymphocytes % (Manual) Reactive Lymphs % (Man) Monocytes % (Manual) Basophils % (Manual) Neutrophils # (Manual) Total Absolute Neuts Lymphocytes # (Manual) Reactive Lymphs # Total Abs Lymphocytes Monocytes # (Manual) Basophils # (Manual) Platelet Estimate PT 11.4 INR 1.1 APTT 33.5 H PTT Ratio 1.2 D-Dimer 1300 H* Sodium Potassium Chloride Carbon Dioxide Anion Gap BUN Creatinine Est Cr Clr Drug Dosing Est GFR ( Amer) Est GFR (Non-Af Amer) BUN/Creatinine Ratio Glucose Lactate Calcium Phosphorus Magnesium Ferritin 800.1 H Total Bilirubin AST ALT Alkaline Phosphatase Troponin I NT-Pro-B Natriuret Pep 189 Total Protein Albumin Globulin Albumin/Globulin Ratio Procalcitonin TSH 1.400 Anaplasma Smear A. phagocytophilum DNA Lyme Disease IgG Ab Lyme IgG (Western Blot) Lyme IgG 18 kDa Band Lyme IgG 23 kDa Band Lyme IgG 28 kDa Band Lyme IgG 30 kDa Band Lyme IgG 39 kDa Band Lyme IgG 41 kDa Band Lyme IgG 45 kDa Band Lyme IgG 58 kDa Band Lyme IgG 66 kDa Band Lyme IgG 93 kDa Band Lyme IgM Ab (WB) Lyme Disease IgM Ab Lyme IgM 23 kDa Band Lyme IgM 39 kDa Band Lyme IgM 41 kDa Band COVID-19 Eval Order COVID-19 PCR Hepatitis C Ab Screen 01/19/20 01/19/20 01/19/20 10:07 10:07 10:15 WBC RBC Hgb Hct MCV MCH MCHC RDW Std Deviation RDW Coeff of Lizbeth Plt Count MPV Neutrophils % (Manual) Lymphocytes % (Manual) Reactive Lymphs % (Man) Monocytes % (Manual) Basophils % (Manual) Neutrophils # (Manual) Total Absolute Neuts Lymphocytes # (Manual) Reactive Lymphs # Total Abs Lymphocytes Monocytes # (Manual) Basophils # (Manual) Platelet Estimate PT INR APTT PTT Ratio D-Dimer Sodium Potassium Chloride Carbon Dioxide Anion Gap BUN Creatinine Est Cr Clr Drug Dosing Est GFR ( Amer) Est GFR (Non-Af Amer) BUN/Creatinine Ratio Glucose Lactate 1.7 Calcium Phosphorus Magnesium Ferritin Total Bilirubin AST ALT Alkaline Phosphatase Troponin I NT-Pro-B Natriuret Pep Total Protein Albumin Globulin Albumin/Globulin Ratio Procalcitonin 1.07 H TSH Anaplasma Smear A. phagocytophilum DNA Pending Lyme Disease IgG Ab Lyme IgG (Western Blot) Lyme IgG 18 kDa Band Lyme IgG 23 kDa Band Lyme IgG 28 kDa Band Lyme IgG 30 kDa Band Lyme IgG 39 kDa Band Lyme IgG 41 kDa Band Lyme IgG 45 kDa Band Lyme IgG 58 kDa Band Lyme IgG 66 kDa Band Lyme IgG 93 kDa Band Lyme IgM Ab (WB) Lyme Disease IgM Ab Lyme IgM 23 kDa Band Lyme IgM 39 kDa Band Lyme IgM 41 kDa Band COVID-19 Eval Order COVID-19 PCR Hepatitis C Ab Screen 01/19/20 01/19/20 01/19/20 13:12 13:12 14:14 WBC RBC Hgb Hct MCV MCH MCHC RDW Std Deviation RDW Coeff of Lizbeth Plt Count MPV Neutrophils % (Manual) Lymphocytes % (Manual) Reactive Lymphs % (Man) Monocytes % (Manual) Basophils % (Manual) Neutrophils # (Manual) Total Absolute Neuts Lymphocytes # (Manual) Reactive Lymphs # Total Abs Lymphocytes Monocytes # (Manual) Basophils # (Manual) Platelet Estimate PT INR APTT PTT Ratio D-Dimer Sodium Potassium Chloride Carbon Dioxide Anion Gap BUN Creatinine Est Cr Clr Drug Dosing Est GFR ( Amer) Est GFR (Non-Af Amer) BUN/Creatinine Ratio Glucose Lactate Calcium Phosphorus Magnesium Ferritin Total Bilirubin AST ALT Alkaline Phosphatase Troponin I NT-Pro-B Natriuret Pep Total Protein Albumin Globulin Albumin/Globulin Ratio Procalcitonin TSH Anaplasma Smear A. phagocytophilum DNA Lyme Disease IgG Ab Negative Lyme IgG (Western Blot) Lyme IgG 18 kDa Band Lyme IgG 23 kDa Band Lyme IgG 28 kDa Band Lyme IgG 30 kDa Band Lyme IgG 39 kDa Band Lyme IgG 41 kDa Band Lyme IgG 45 kDa Band Lyme IgG 58 kDa Band Lyme IgG 66 kDa Band Lyme IgG 93 kDa Band Lyme IgM Ab (WB) Lyme Disease IgM Ab Negative Lyme IgM 23 kDa Band Lyme IgM 39 kDa Band Lyme IgM 41 kDa Band COVID-19 Eval Order Covid19 Done at [facility] COVID-19 PCR NEGATIVE Hepatitis C Ab Screen 01/19/20 01/19/20 01/19/20 14:14 16:26 20:14 WBC RBC Hgb Hct MCV MCH MCHC RDW Std Deviation RDW Coeff of Lizbeth Plt Count MPV Neutrophils % (Manual) Lymphocytes % (Manual) Reactive Lymphs % (Man) Monocytes % (Manual) Basophils % (Manual) Neutrophils # (Manual) Total Absolute Neuts Lymphocytes # (Manual) Reactive Lymphs # Total Abs Lymphocytes Monocytes # (Manual) Basophils # (Manual) Platelet Estimate PT INR APTT PTT Ratio D-Dimer Sodium Potassium Chloride Carbon Dioxide Anion Gap BUN Creatinine Est Cr Clr Drug Dosing Est GFR ( Amer) Est GFR (Non-Af Amer) BUN/Creatinine Ratio Glucose Lactate Calcium Phosphorus Magnesium Ferritin Total Bilirubin AST ALT Alkaline Phosphatase Troponin I < 0.015 < 0.015 NT-Pro-B Natriuret Pep Total Protein Albumin Globulin Albumin/Globulin Ratio Procalcitonin TSH Anaplasma Smear A. phagocytophilum DNA Lyme Disease IgG Ab Lyme IgG (Western Blot) Lyme IgG 18 kDa Band Lyme IgG 23 kDa Band Lyme IgG 28 kDa Band Lyme IgG 30 kDa Band Lyme IgG 39 kDa Band Lyme IgG 41 kDa Band Lyme IgG 45 kDa Band Lyme IgG 58 kDa Band Lyme IgG 66 kDa Band Lyme IgG 93 kDa Band Lyme IgM Ab (WB) Lyme Disease IgM Ab Lyme IgM 23 kDa Band Lyme IgM 39 kDa Band Lyme IgM 41 kDa Band COVID-19 Eval Order COVID-19 PCR Hepatitis C Ab Screen Neg 01/19/20 01/19/20 01/20/20 20:14 20:14 04:00 WBC 7.05 RBC 4.60 L Hgb 13.9 L Hct 41.4 L MCV 90.0 MCH 30.2 MCHC 33.6 RDW Std Deviation 46.1 RDW Coeff of Lizbeth 13.8 Plt Count 115 L MPV 12.2 H Neutrophils % (Manual) Lymphocytes % (Manual) Reactive Lymphs % (Man) Monocytes % (Manual) Basophils % (Manual) Neutrophils # (Manual) Total Absolute Neuts Lymphocytes # (Manual) Reactive Lymphs # Total Abs Lymphocytes Monocytes # (Manual) Basophils # (Manual) Platelet Estimate Decreased L PT INR APTT 81.9 H* PTT Ratio 2.9 D-Dimer Sodium Potassium Chloride Carbon Dioxide Anion Gap BUN Creatinine Est Cr Clr Drug Dosing Est GFR ( Amer) Est GFR (Non-Af Amer) BUN/Creatinine Ratio Glucose Lactate Calcium Phosphorus Magnesium Ferritin Total Bilirubin AST ALT Alkaline Phosphatase Troponin I NT-Pro-B Natriuret Pep Total Protein Albumin Globulin Albumin/Globulin Ratio Procalcitonin TSH Anaplasma Smear A. phagocytophilum DNA Lyme Disease IgG Ab Lyme IgG (Western Blot) Cancelled Lyme IgG 18 kDa Band Cancelled Lyme IgG 23 kDa Band Cancelled Lyme IgG 28 kDa Band Cancelled Lyme IgG 30 kDa Band Cancelled Lyme IgG 39 kDa Band Cancelled Lyme IgG 41 kDa Band Cancelled Lyme IgG 45 kDa Band Cancelled Lyme IgG 58 kDa Band Cancelled Lyme IgG 66 kDa Band Cancelled Lyme IgG 93 kDa Band Cancelled Lyme IgM Ab (WB) Cancelled Lyme Disease IgM Ab Lyme IgM 23 kDa Band Cancelled Lyme IgM 39 kDa Band Cancelled Lyme IgM 41 kDa Band Cancelled COVID-19 Eval Order COVID-19 PCR Hepatitis C Ab Screen 01/20/20 01/20/20 04:00 04:00 WBC RBC Hgb Hct MCV MCH MCHC RDW Std Deviation RDW Coeff of Lizbeth Plt Count MPV Neutrophils % (Manual) Lymphocytes % (Manual) Reactive Lymphs % (Man) Monocytes % (Manual) Basophils % (Manual) Neutrophils # (Manual) Total Absolute Neuts Lymphocytes # (Manual) Reactive Lymphs # Total Abs Lymphocytes Monocytes # (Manual) Basophils # (Manual) Platelet Estimate PT INR APTT 72.3 H* PTT Ratio 2.6 D-Dimer Sodium 139 Potassium 3.8 Chloride 108 H Carbon Dioxide 26 Anion Gap 5.0 BUN 16 Creatinine 1.00 D Est Cr Clr Drug Dosing 92.5 Est GFR ( Amer) 90.5 Est GFR (Non-Af Amer) 78.1 BUN/Creatinine Ratio 15.6 Glucose 103 H Lactate Calcium 8.1 L Phosphorus Magnesium Ferritin Total Bilirubin AST ALT Alkaline Phosphatase Troponin I NT-Pro-B Natriuret Pep Total Protein Albumin Globulin Albumin/Globulin Ratio Procalcitonin TSH Anaplasma Smear A. phagocytophilum DNA Lyme Disease IgG Ab Lyme IgG (Western Blot) Lyme IgG 18 kDa Band Lyme IgG 23 kDa Band Lyme IgG 28 kDa Band Lyme IgG 30 kDa Band Lyme IgG 39 kDa Band Lyme IgG 41 kDa Band Lyme IgG 45 kDa Band Lyme IgG 58 kDa Band Lyme IgG 66 kDa Band Lyme IgG 93 kDa Band Lyme IgM Ab (WB) Lyme Disease IgM Ab Lyme IgM 23 kDa Band Lyme IgM 39 kDa Band Lyme IgM 41 kDa Band COVID-19 Eval Order COVID-19 PCR Hepatitis C Ab Screen Medications Administered Current Inpatient Medications Acetaminophen (Acetaminophen 325 Mg Tab) 650 mg PO Q4H PRN PRN Reason: Pain or Fever Stop: 02/18/20 12:09 Aspirin (Aspirin 81 Mg Ectab) 81 mg PO QAM [facility] Stop: 02/19/20 08:59 Last Admin: 01/20/20 07:33 Dose: 81 mg Documented by: Heparin Sodium/Dextrose (Heparin Sodium/Dextrose) 25,000 units in 500 mls @ 26 mls/hr IV .[id number] [facility]; Protocol Stop: 02/18/20 12:29 Last Admin: 01/20/20 08:34 Dose: 1,300 units/hr, 26 mls/hr Documented by: Diltiazem HCl 125 mg/ Dextrose 125 mls @ 15 mls/hr IV [id number] [facility]; Protocol Stop: 02/18/20 19:44 Last Admin: 01/20/20 08:34 Dose: 15 mg/hr, 15 mls/hr Documented by: Magnesium Hydroxide (Magnesium Hydroxide Susp 30 Ml Udc) 30 ml PO Q12H PRN PRN Reason: Constipation Stop: 02/18/20 12:09 Metoprolol Tartrate (Metoprolol Tartrate 1 Mg/Ml Vial) 5 mg IV Q4 PRN PRN Reason: Heart rate > 100 Stop: 02/18/20 15:45 Last Admin: 01/19/20 19:27 Dose: 5 mg Documented by: Metoprolol Tartrate (Metoprolol Tartrate 25 Mg Tab) 25 mg PO TID [facility] Stop: 02/19/20 08:59 Last Admin: 01/20/20 07:33 Dose: 25 mg Documented by: Pantoprazole Sodium (Pantoprazole 40 Mg Tab) 40 mg PO DAILY [facility] Stop: 02/19/20 08:59 Polyethylene Glycol (Polyethylene (Miralax) 17 Gm Pack) 17 gm PO DAILY PRN PRN Reason: Constipation Stop: 02/18/20 12:09
[2020-01-20] MEDS ORDERED: ASPIRIN 81 MG ECTAB PO SCH (09:00)
--- NOTE | 2020-01-20 09:49 | Electrocardiogram Report ---
Test Reason : Blood Pressure : / mmHG Vent. Rate : 170 BPM Atrial Rate : 170 BPM P-R Int : 000 ms QRS Dur : 128 ms QT Int : 268 ms P-R-T Axes : 000 -25 -74 degrees QTc Int : 450 ms Supraventricular tachycardia Possible juntional re-entry mechanism (short R-P interval) Abnormal ECG When compared with ECG of 06-JAN-2011 11:26, Supraventricular tachycardia now present Vent. rate has increased BY 80 BPM Confirmed by Uri Gong ([id number]) on 01/20/2020 9:49:02 AM Referred By: Confirmed By:Uri Gong
[2020-01-20] MEDS ORDERED: Nursing to Pharmacy Communication SCH ×2 (10:00→12:00)
--- NOTE | 2020-01-20 10:17 | Electrocardiogram Report ---
Test Reason : Blood Pressure : / mmHG Vent. Rate : 157 BPM Atrial Rate : 000 BPM P-R Int : 000 ms QRS Dur : 094 ms QT Int : 286 ms P-R-T Axes : 000 012 044 degrees QTc Int : 462 ms Probable Atrial flutter with 2 to 1 block Abnormal ECG When compared with ECG of 19-JAN-2020 21:43, HR has increased by 35 bpm aflutter may have replaced atrial fibrillation Confirmed by Uri Gong ([id number]) on 01/20/2020 10:17:30 AM Referred By: REFERRED SELF Confirmed By:Uri Gong
--- NOTE | 2020-01-20 10:22 | Electrocardiogram Report ---
Test Reason : Blood Pressure : / mmHG Vent. Rate : 122 BPM Atrial Rate : 170 BPM P-R Int : 000 ms QRS Dur : 078 ms QT Int : 302 ms P-R-T Axes : 000 -17 -48 degrees QTc Int : 430 ms Atrial fibrillation with rapid ventricular response Abnormal ECG When compared with ECG of 19-JAN-2020 21:17, Atrial fibrillation has replaced Atrial flutter HR has decreased by 22 bpm Confirmed by Uri Gong ([id number]) on 01/20/2020 10:21:50 AM Referred By: REFERRED SELF Confirmed By:Uri Gong
[2020-01-20] MEDS: PANTOprazole 40 MG TAB PO SCH (11:21)
[2020-01-20 11:38] LABS: Partial Thromboplastin Time 56.1 Seconds (21.0-31.0)
--- NOTE | 2020-01-20 17:45 | Hospitalist Progress Note ---
Date of Service January 20, 2020 Assessment & Plan (1) Atrial flutter with rapid ventricular response: Patient remained in a flutter overnight, IV Cardizem, converted to sinus with rate controlled around 8 AM in the morning On p.o. Lopressor 25 mg 3 times daily Appreciate input from cardiology Echo shows no wall motion abnormality, serial cardiac markers negative Borderline thrombocytopenia noted, We will DC IV heparin, started on Eliquis 5 mg twice daily Continue to monitor in telemetry Thrombocytopenia: Platelet was 121: Decreased 212 today No sign or symptom of bleeding We will hold aspirin, IV heparin discontinued started on Eliquis Lyme titer negative, and plasma s DNA pending Empirically started with p.o. doxycycline Follow CBC daily (2) Hypotension: Blood pressure borderline low Continue beta-orly (3) Fever: Has been afebrile since admission (4) D-dimer, elevated: Chest with contrast no sign of PE (5) MCCOY (dyspnea on exertion): Hypotensive down to 75/62 upon presentation. MCCOY is likely secondary to Aflutter/Afib, Repeat COVID testing was negative Blood cultures-pending Lyme-negative & Anaplasma smear negative, confirmation test DNA pending Given thrombocytopenia symptoms of body ache, fever chills prior to admission, started on doxycycline DDimer elevated- CTA ordered and completed. Negative for PE (6) Nausea and vomiting: No further episode, tolerating diet (7) DVT prophylaxis: [facility] Admission and Anticipated Discharge Date Admission Date: January 19, 2020 Subjective Denies of any shortness of breath, no chest pain or palpitation No fever or chills Body ache discomfort has resolved, Review of Systems Review of Systems: All systems reviewed & are unremarkable except as noted in HPI & below Constitutional: no fever, no chills and no body aches Physical Exam Constitutional: WD/WN, vitals as above no acute distress Eyes: PERRL, conjunctivae normal, anicteric sclerae ENMT: external ear and nose normal, oropharynx normal Neck: trachea midline, no thyromegaly Respiratory: normal respiratory effort, lungs clear to auscultation Cardiovascular: RRR, no murmur, no edema Gastrointestinal (Abdomen): normal bowel sounds, soft, nontender, no hepatosplenomegaly Skin: no rashes, warm and dry Neurologic: PERRL, EOMI, accommodation nl, no face palsy, no dysarthria Psychiatric: A+Ox3, euthymic affect Results & Data Results & Data ([facility]) Vital Signs (Past 12 Hours) Vital Signs Temp Pulse Resp BP Pulse Ox 01/20/20 15:22 37.0 C 76 17 100/66 94 01/20/20 13:46 102/64 01/20/20 11:13 36.9 C 84 18 110/71 92 01/20/20 09:47 104/65 01/20/20 07:24 36.6 C 150 H 18 134/87 94
[2020-01-20] MEDS: DOXYCYCLINE HYCLATE 100 MG CAP PO SCH (20:53)
[2020-01-20] MEDS: APIXABAN 5 MG TABLET PO SCH (21:03)
[2020-01-20] MEDS ORDERED: LORazepam 0.5 MG TAB PO STA (21:37)
[2020-01-21] MEDS: HEPARIN SODIUM/DEXTROSE 25,000 UNITS/500 ML BAG IV SCH (00:16)
--- NOTE | 2020-01-21 08:26 | Cardiology Progress Note ---
Date of Service January 21, 2020 Assessment & Plan (1) Nausea and vomiting: (2) Fever, low grade: (3) Hypotension: (4) Atrial flutter with rapid ventricular response: The patient from a cardiac standpoint is currently stable. He should continue metoprolol and Eliquis. When all other work-up is complete, from a cardiac standpoint he can be discharged to outpatient follow-up. Admission and Anticipated Discharge Date Admission Date: January 19, 2020 Subjective The patient had an uneventful night. He converted to normal sinus rhythm early yesterday morning and has maintained a regular rhythm overnight. He has no new complaints this morning. Review of Systems Review of Systems: All systems reviewed & are unremarkable except as noted in HPI & below Nothing additional to add Physical Exam Physical Exam: General: no acute distress and stated age Head: normocephalic, no masses, lesions, tenderness or abnormalities Eyes: conjunctiva are pink and non-injected, sclera clear Neck: supple, no adenopathy, no bruits, normal jugular venous pulse, no hepatojugular reflux Chest: normal shape and normal respiratory effort Lungs: clear to auscultation and percussion Cardiac Exam: - regular rate & rhythm, no murmurs gallops or rubs - normal S1, normal S2 Pulses: 2(+) throughout Abdomen: abdomen soft, non-tender, no abnormal masses and no hepatosplenomegaly Musculoskeletal: no gait disturbance, no joint inflammation, no deforming arthritis Extremities: no edema and no cyanosis Neuro: grossly normal exam Results & Data ([facility]) Vital Signs (Past 12 Hours) Vital Signs Temp Pulse Resp BP Pulse Ox 01/21/20 06:35 36.8 C 68 19 117/77 94 01/21/20 02:38 36.6 C 74 19 112/77 96 01/20/20 23:14 36.9 C 77 20 108/70 94 Laboratory Results Laboratory Results - last 24 hr 01/20/20 11:05 APTT 56.1 H* PTT Ratio 2.0 Medications Administered Current Inpatient Medications Acetaminophen (Acetaminophen 325 Mg Tab) 650 mg PO Q4H PRN PRN Reason: Pain or Fever Stop: 02/18/20 12:09 Last Admin: 01/20/20 11:24 Dose: 650 mg Documented by: Apixaban (Apixaban 5 Mg Tablet) 5 mg PO BID [facility] Stop: 02/19/20 17:59 Last Admin: 01/20/20 21:03 Dose: 5 mg Documented by: Doxycycline Hyclate (Doxycycline Hyclate 100 Mg Cap) 100 mg PO BID [facility]; Protocol Stop: 02/03/20 17:49 Last Admin: 01/20/20 20:53 Dose: 100 mg Documented by: Magnesium Hydroxide (Magnesium Hydroxide Susp 30 Ml Udc) 30 ml PO Q12H PRN PRN Reason: Constipation Stop: 02/18/20 12:09 Metoprolol Tartrate (Metoprolol Tartrate 1 Mg/Ml Vial) 5 mg IV Q4 PRN PRN Reason: Heart rate > 100 Stop: 02/18/20 15:45 Last Admin: 01/19/20 19:27 Dose: 5 mg Documented by: Metoprolol Tartrate (Metoprolol Tartrate 25 Mg Tab) 25 mg PO TID [facility] Stop: 02/19/20 08:59 Last Admin: 01/20/20 20:54 Dose: 25 mg Documented by: Pantoprazole Sodium (Pantoprazole 40 Mg Tab) 40 mg PO DAILY [facility] Stop: 02/19/20 08:59 Last Admin: 01/20/20 11:21 Dose: 40 mg Documented by: Polyethylene Glycol (Polyethylene (Miralax) 17 Gm Pack) 17 gm PO DAILY PRN PRN Reason: Constipation Stop: 02/18/20 12:09
--- NOTE | 2020-01-21 08:56 | Electrocardiogram Report ---
Test Reason : Blood Pressure : / mmHG Vent. Rate : 069 BPM Atrial Rate : 069 BPM P-R Int : 160 ms QRS Dur : 086 ms QT Int : 418 ms P-R-T Axes : 021 004 -21 degrees QTc Int : 447 ms Normal sinus rhythm Left atrial enlargement Borderline ECG When compared with ECG of 20-JAN-2020 08:26, Sinus rhythm has re[placed Atrial flutter HR has decreased by 88 bpm Confirmed by Uri Gong ([id number]) on 01/21/2020 8:55:52 AM Referred By: REFERRED SELF Confirmed By:Uri Gong
[2020-01-21] MEDS: METOPROLOL TARTRATE 25 MG TAB PO SCH ×2 (09:16→14:41)
[2020-01-21] MEDS: DOXYCYCLINE HYCLATE 100 MG CAP PO SCH (09:16)
[2020-01-21] MEDS: PANTOprazole 40 MG TAB PO SCH (09:17)
[2020-01-21] MEDS: APIXABAN 5 MG TABLET PO SCH (09:17)
--- NOTE | 2020-01-21 14:21 | Communication Note ---
Date of Service: January 21, 2020 Patient's heart rate been rate controlled converted to sinus since yesterday Evaluated by cardiology today able to be discharged home, with Lopressor 25 mg 3 times daily, patient started with p.o. Eliquis 5 mg twice daily yesterday which will be continued as stroke prophylaxis Will be discharged home today: Hospital follow-up with family physician will be arranged Need further follow-up with cardiology Dr. Warner at [facility] cardiology clinic Will need outpatient cardiac ischemic work-up, cardiac stress test Also risk modification: Fasting lipid panel, hemoglobin A1c Alisa Rossi MD
[2020-01-21 14:53] LABS: Hematocrit (blood only) 40.2 % (42-52); Hemoglobin 13.6 g/dL (14.0-18.0); Mean Corpuscular Hemoglobin 29.8 pg (25-34); Mean Corpuscular Hgb Conc 33.8 g/dL (32-36); Mean Corpuscular Volume 88.2 fL (80-100); Mean Platelet Volume 12.1 fL (7.4-10.4); Platelet Count 115 K/uL (130-400); RDW Standard Deviation 45.6 fL (36.4-46.3); Red Blood Count 4.56 M/uL (4.7-6.1); White Blood Count 8.81 K/uL (4.8-10.8)
--- NOTE | 2020-01-21 15:23 | Discharge Summary ---
Date of Service January 21, 2020 Admission HPI Per Admitting Provider Patient is a 64 yo male with no personal cardiac history who presented to the ED with concern of 2-3 weeks of not feeling well. He has had fevers, sweats, fatigue, SOB, & N/V. He presented to outpatient weekend clinic at [facility] and was noted to be in Aflutter on EKG in the office. He was given ASA 325 mg in the office and referred to the ED for further evaluation and workup. The patient was COVID tested on 01/05/20 which was negative at that time. Since presentation to the ED, CXR was negative. WBC count within norm. Troponin undetectable. TSH & CMP unrevealing. Repeat COVID testing negative here. DDimer elevated. Procalcitonin slightly elevated. CTA Chest negative for PE. Principal Diagnosis Atrial fibrillation/a flutter Discharge Exam Constitutional WD/WN, vitals as above no acute distress Eyes PERRL, conjunctivae normal, anicteric sclerae ENMT external ear and nose normal, oropharynx normal Neck trachea midline, no thyromegaly Respiratory normal respiratory effort, lungs clear to auscultation Cardiovascular RRR, no murmur, no edema Gastrointestinal (Abdomen) normal bowel sounds, soft, nontender, no hepatosplenomegaly Skin no rashes, warm and dry Neurologic PERRL, EOMI, accommodation nl, no face palsy, no dysarthria Psychiatric A+Ox3, euthymic affect Discharge Data Allergies Allergy/AdvReac Type Severity Reaction Status Date / Time No Known Allergies Unverified 01/06/11 19:22 Consultations 01/19/20 11:42 ED Decision to Admit Stat 01/19/20 12:10 Consult Cardiology Routine 01/19/20 12:13 Consult Case Management - Discharge Planning Routine Ordered Studies 01/19/20 12:45 CT angio chest PE protocol Stat Hospital Course (1) Atrial flutter with rapid ventricular response: Converted normal sinus rhythm remains in rate controlled overnight Stable to be discharged home with Lopressor 25 mg p.o. 3 times daily Appreciate input from cardiology Echo shows no wall motion abnormality, serial cardiac markers negative , started on Eliquis 5 mg twice daily per stroke prophylaxis Thrombocytopenia: Platelet was 121:-118 No sign or symptom of bleeding Hold aspirin, patient is continued with Eliquis Repeat blood work CBC on next physician visit (2) Hypotension: Continue on Lopressor 25 mg p.o. 3 times daily Follow-up with cardiology in clinic (3) Fever: Has been afebrile since admission (4) D-dimer, elevated: Chest with contrast no sign of PE (5) MCCOY (dyspnea on exertion): Symptom has completely resolved after heart rate and rhythm stable MCCOY is likely secondary to Aflutter/Afib, Repeat COVID testing was negative Lyme-antibody negative & Anaplasma smear negative, DDimer elevated- CTA ordered and completed. Negative for PE (6) Nausea and vomiting: No further episode, tolerating diet (7) DVT prophylaxis: Eliquis Disposition: Stable to be discharged home today Total Time Total Time Spent Total Time Spent (In Minutes): 35 minutes Total Time Includes: Discharge Planning and Medication Reconciliation Discharge Plan Discharge Items Patient Disposition: Home - Self-Care Reason For Visit: SOB, FEVER, COUGH Discharge Diagnosis: Atrial fibrillation/atrial flutter Activity: Resume your previous activity Non-emergency contact: Primary Care Provider Call non-emergency contact if: you have any medication questions Follow-up/Referrals: Taj Warner DO [[employer]ic] - Nagi Sanchez DO [Primary Care Provider] - 01/27/20 11:00 am (Date & Time 01/27/2020 11:00 AM Provider Uri Dang MD Department Family [facility] ) Diet: Heart Healthy Addtl Attending Provider Instructions: Diagnosed with irregular heartbeat, atrial flutter/atrial fibrillation New medications: Lopressor 25 mg 3 times daily-for heart rate control Eliquis 5 mg 1 tablet twice daily: Blood thinner to prevent future risk of stroke due to irregular heartbeat You need to follow-up with category specialist/cardiology Dr. Warner You will need outpatient cardiac stress test Do not take Viagra /Sildenafil as it will increase your heart rate and blood pressure -leading to rapid irregular heart beat , chest pain , shortness of breath due to strong family history of premature cardiac disease , you are in high risk group for developing narrowing of heart vessels , [place]/heart attack need to further testing in clinic visit for risk reduction : Fasting lipid panel Hemoglobin A1c cardiac stress test as recommended by cardiology Pending Studies at Discharge: Yes Studies:: Fasting Lipid panel Hemoglobin A1 c complete blood count in 1 week Stand-Alone Forms: [employer], Smoking Cessation Medications and DC Order Prescriptions: New metoprolol tartrate 25 mg Tablet 25 mg PO TID 30 Days Qty: 90 RF: 3 Eliquis 5 mg Tablet 5 mg PO BID 30 Days Qty: 60 RF: 3 Continued omeprazole 20 mg capsule,delayed release(DR/EC) 20 mg PO DAILY RF: 0 Discontinued sildenafil 50 mg tablet 50 mg PO DIRECTED PRN (Reason: Erectile Dysfunction) RF: 0 Discharge Orders: Discharge Order (Routine); Ordered 01/21/20 Ordered By: Alisa Rossi Admission Data Admit Date/Time: 01/19/20 12:11 Attending Provider: Alisa Rossi Admit Provider: Alisa Rossi Primary Care Provider: Nagi Sanchez Other Providers: Alisa Rossi ; Emil Redd ; Bhavin Sneed ; Addy Chaudhary ; Henrique Alfredo ; Taj Warner ; Trey Torres ; Asmita Smith ; Pina Simons ; David Carcamo Other Interventions: Discharge Summary Assessment (RN) Last Done: 01/21/20 14:49
--- NOTE | 2020-01-24 12:56 | Communication Note ---
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
== END 2020-01-21 15:34 | disposition home or self-care (01) | DRG 309 ==
LOC: ED 09:49 → 2S 12:55